=== PATIENT | male | born 1990 | race African-American/Black ===

== ENCOUNTER 2018-09-18 08:46 | Emergency (ER) | payer SELFPAY | END 2018-09-18 09:15 | disposition home or self-care (01) | LOC: ERS 08:46 | DX: J06.9 Acute upper respiratory infection, unspecified (principal); B34.9 Viral infection, unspecified; F17.210 Nicotine dependence, cigarettes, uncomplicated | CPT/HCPCS: 99283 ==

== ENCOUNTER 2019-12-24 02:20 | Emergency (ER) | payer SELFPAY | END 2019-12-24 02:29 | LOC: ERS 02:20 | DX: S00.01XA Abrasion of scalp, initial encounter (principal); F17.210 Nicotine dependence, cigarettes, uncomplicated; J45.909 Unspecified asthma, uncomplicated; Y00.XXXA Assault by blunt object, initial encounter | CPT/HCPCS: 99283 ==

== ENCOUNTER 2019-12-24 04:12 | Emergency (ER) | payer SELFPAY | END 2019-12-24 04:20 | LOC: ERS 04:12 | DX: S00.01XA Abrasion of scalp, initial encounter (principal); J45.909 Unspecified asthma, uncomplicated; F17.210 Nicotine dependence, cigarettes, uncomplicated; W22.8XXA Striking against or struck by other objects, initial encounter | CPT/HCPCS: 99283 ==